=== PATIENT | male | born 1965 | race Caucasian/White ===

== ENCOUNTER 2019-05-17 17:32 | Emergency (ER) | payer BC, OTHER ==
[2019-05-17 17:37] VITALS: BP 145/87; PULSE 52; RESP 18; TEMP 97.4
[2019-05-17] MEDS ORDERED: PROPARACAINE 0.5% OPHTH DROPS 15 ML BTL RIGHT EYE STA (17:39)
[2019-05-17] MEDS ORDERED: TOBRAMYCIN 0.3% OPHTH DROPS 5 ML BTL RIGHT EYE STA (18:10)
--- NOTE | 2019-05-17 18:12 | ED ---
General Adult HPI - General Chief complaint: Eye Problems Stated complaint: FB in eye Time Seen by Provider: 05/17/19 17:38 Source: patient Mode of arrival: ambulatory Limitations: no limitations - History of Present Illness Initial comments: 53-year-old male patient presents to the emergency department today for evaluation of foreign body to the right eye. Patient states he is working with aluminum when a shaving flew into his right eye. Patient states he did go to urgent care over the symptom here for further evaluation after they were unable to remove the foreign body. Patient believes he had his tetanus vaccine her last physical one year ago. He denies any drainage from the eye. Denies any blurred or double vision. Denies headache. Denies any other injuries. - Related Data Home Medications Medication Instructions Recorded Confirmed Omeprazole [PriLOSEC] 20 mg PO AC-BRKFST 01/30/15 01/30/15 Previous Rx's Medication Instructions Recorded Diazepam [Valium] 5 mg PO BID PRN #15 tab 01/30/15 Allergies Allergy/AdvReac Type Severity Reaction Status Date / Time No Known Allergies Allergy Verified 05/17/19 17:37 Review of Systems ROS Statement: Those systems with pertinent positive or pertinent negative responses have been documented in the HPI. ROS Other: All systems not noted in ROS Statement are negative. Past Medical History Past Medical History: GERD/Reflux History of Any Multi-Drug Resistant Organisms: None Reported Past Surgical History: Orthopedic Surgery Past Psychological History: No Psychological Hx Reported Smoking Status: Never smoker Past Alcohol Use History: Occasional Past Drug Use History: Marijuana General Exam Limitations: no limitations General appearance: alert, in no apparent distress, other (This is a well- developed, well-nourished adult male patient in no acute distress. Vital signs upon presentation are temperature 97.4F, pulse 52, respirations 18, blood pressure 145/87, pulse ox 96% on room air.) Eye exam: Present: PERRL, EOMI, other (There is metallic foreign body noted to the cornea over the pupil around 1:00. No rust ring evident. No drainage from the eye. No evidence for globe rupture.). Absent: normal appearance, scleral icterus, conjunctival injection, periorbital swelling Course Vital Signs 05/17/19 17:34 Temperature 97.4 F L Pulse Rate 52 L Respiratory 18 Rate Blood Pressure 145/87 O2 Sat by Pulse 96 Oximetry Procedures - Procedures Initial comment: Right eye was anesthetized with proparacaine drops. Foreign body located and removed utilizing the Burns brush. Patient tolerated the procedure well with no complications. Medical Decision Making - Medical Decision Making 53-year-old male patient presented to the emergency department today for evaluation of foreign body to the right eye. Physical examination did reveal a metallic foreign body noted to the right cornea at around 1:00 over the pupil. This was removed using the Burns brush. Patient tolerated the procedure well. There was successful removal of the foreign body. He'll be discharged with tobramycin ophthalmic drops. He is instructed to follow-up with civil engineering specialist for recheck in 1-2 days. He is instructed to follow-up with his primary care physician for recheck in 1-2 days. Return parameters discussed in detail. He verbalizes understanding and agrees with this plan. Disposition Clinical Impression: Foreign body of right eye Disposition: HOME SELF-CARE Condition: Good Instructions (If sedation given, give patient instructions): Tobramycin (Into the eye), Eye Foreign Body (ED) Additional Instructions: Use eye drops, one drop four times daily while awake. Follow up with civil engineering specialist for further evaluation if symptoms persist beyond one to 2 days. Return to the emergency department immediately for any new, worsening, or concerning symptoms. Is patient prescribed a controlled substance at d/c from ED?: No Referrals: Phill Mercer MD [Primary Care Provider] - 1-2 days Lorna Marvin MD [STAFF PHYSICIAN] - 1-2 days Time of Disposition: 18:12
== END 2019-05-17 18:23 | disposition home or self-care (01) ==
LOC: EC 17:32
DX: T15.91XA Foreign body on external eye, part unspecified, right eye, initial encounter (principal); K21.9 Gastro-esophageal reflux disease without esophagitis; Z79.899 Other long term (current) drug therapy
CPT/HCPCS: 65205; 99283

== ENCOUNTER 2019-11-29 11:42 | Inpatient (IN) | payer OTHER ==
--- NOTE | 2019-11-29 10:49 | CT ---
EXAMINATION TYPE: CT abdomen pelvis wo/w con DATE OF EXAM: 11/29/2019 COMPARISON: NONE HISTORY: 54-year-old male Right sided abdominal pain TECHNIQUE: Contiguous axial scanning of the abdomen and pelvis before and after administration of 100 ml Isovue 300 IV contrast. Delayed images through the kidneys and coronal/sagittal reconstructions performed. CT DLP: 1550.6 mGycm Automated exposure control for dose reduction was used. FINDINGS: LUNG BASES: No significant abnormality is appreciated. LIVER/GB: Small amount of focal fat along the anterior falciform ligament. Portal venous system is pa tent. No biliary ductal dilatation. PANCREAS: No significant abnormality is seen. SPLEEN: No significant abnormality is seen. ADRENALS: No significant abnormality is seen. KIDNEYS: No significant abnormality is seen. BOWEL: Moderate sized hernia. Focal inflammatory changes obscuring the appendix. There is phlegmonou s change here measuring 5.3 x 5.0 cm with thickened irregular soft tissue and admixed fluid density. More focal fluid along the right flank measures 3.7 x 3.1 cm. No free air. There is some contiguous t hickening extending to the base of the appendix and inferior cecum. Mild diverticular change along th e sigmoid colon. LYMPH NODES: No mesenteric or retroperitoneal lymphadenopathy. Tiny fatty umbilical hernia. PELVIS: No abnormal fluid collection in the pelvis. Bladder is urine distended. Borderline-sized 8 mm external iliac chain lymph nodes likely reactive. BONES: Some ossification at the ischial tuberosities suggest chronic hamstring tendinopathy. IMPRESSION: 1. FINDINGS SUGGEST ACUTE TO SUBACUTE APPENDICITIS WITH ASSOCIATED PHLEGMON AND CONTAINED PERFORATION MEASURING 5.3 X 5.0 CM. EARLY ABSCESS FORMATION HERE MEASURES 3.7 X 3.1 CM. NO FREE AIR OR FREE FLUI D. 2. MODERATE-SIZED HIATAL HERNIA.
[2019-11-29] MEDS ORDERED: SODIUM CHLORIDE 0.9% 1,000 ML IV ONE (11:47)
[2019-11-29] MEDS ORDERED: PIPERACILLIN-TAZOBACTAM 3.375 GM in SODIUM CHLORIDE 0.9% 100 ML IVPB STA (11:47)
[2019-11-29] MEDS ORDERED: NALOXONE 0.4 MG/ML 1 ML VIAL IV PRN (11:55)
[2019-11-29] MEDS ORDERED: MORPHINE SULFATE 4 MG/ML SYRINGE IV PRN (11:55)
--- NOTE | 2019-11-29 11:55 | ED ---
Abdominal Pain HPI - General Chief Complaint: Abdominal Pain Stated Complaint: Appendicitis Time Seen by Provider: 11/29/19 11:46 Source: patient, RN notes reviewed Mode of arrival: ambulatory Limitations: no limitations - History of Present Illness Initial Comments: 54-year-old male present emergency department with chief complaint of right- sided abdominal pain. Patient's pain is been on for several weeks but states it has worsened to the point he cannot tolerate. Patient does admit that he thought the pain was started couple weeks ago. Patient's had nausea without any episodes of vomiting, diarrhea or known fever. Patient's had no prior abdominal surgeries. Patient saw PCP and had an outpatient CT performed today. - Related Data Home Medications Medication Instructions Recorded Confirmed Omeprazole [PriLOSEC] 40 mg PO AC-BRKFST 11/29/19 11/29/19 Allergies Allergy/AdvReac Type Severity Reaction Status Date / Time No Known Allergies Allergy Verified 11/29/19 12:08 Review of Systems ROS Statement: Those systems with pertinent positive or pertinent negative responses have been documented in the HPI. ROS Other: All systems not noted in ROS Statement are negative. Past Medical History Past Medical History: GERD/Reflux History of Any Multi-Drug Resistant Organisms: None Reported Past Surgical History: Orthopedic Surgery Past Psychological History: No Psychological Hx Reported Smoking Status: Never smoker Past Alcohol Use History: Occasional Past Drug Use History: Marijuana General Exam Limitations: no limitations General appearance: alert, in no apparent distress Head exam: Present: atraumatic, normocephalic, normal inspection Respiratory exam: Present: normal lung sounds bilaterally. Absent: respiratory distress, wheezes, rales, rhonchi, stridor Cardiovascular Exam: Present: regular rate, normal rhythm, normal heart sounds. Absent: systolic murmur, diastolic murmur, rubs, gallop, clicks GI/Abdominal exam: Present: soft, tenderness (Moderately tender right lower quadrant), normal bowel sounds. Absent: distended, guarding, rebound, rigid Course Vital Signs 11/29/19 11:43 Temperature 98.4 F Pulse Rate 86 Respiratory 18 Rate Blood Pressure 154/94 O2 Sat by Pulse 97 Oximetry Medical Decision Making - Medical Decision Making Patient CT shows evidence of subacute appendicitis with abscess formation angelina downey's case discussed with Dr. Duong who recommended patient be admitted to Dr. angel with consult to her patient's will be evaluated for possible drainage or surgery Disposition Clinical Impression: Acute appendicitis with appendiceal abscess Disposition: ADMITTED IP TO THIS HOSP Condition: Serious Referrals: Phill Mercer MD [Primary Care Provider] - 1-2 days
[2019-11-29] MEDS ORDERED: SODIUM CHLORIDE 0.9% 1,000 ML IV SCH (12:00)
[2019-11-29 12:15] LABS: Basophils % (A) 0 %; Eosinophils # (A) 0.3 k/uL (0-0.7); Eosinophils % (A) 2 %; HCT 41.4 % (39.0-53.0); HGB 13.9 gm/dL (13.0-17.5); Lymphocytes # (A) 2.8 k/uL (1.0-4.8); Lymphocytes % (A) 18 %; MCH 28.3 pg (25.0-35.0); MCHC 33.5 g/dL (31.0-37.0); MCV 84.6 fL (80.0-100.0); Mean Platelet Volume 7.5; Monocytes # (A) 0.6 k/uL (0-1.0); Monocytes % (A) 4 %; Neutrophils # (A) 11.2 k/uL (1.3-7.7); Neutrophils % (A) 73 %; Platelet Count 558 k/uL (150-450); RBC 4.89 m/uL (4.30-5.90); RDW 12.6 % (11.5-15.5); WBC 15.4 k/uL (3.8-10.6)
[2019-11-29 12:29] LABS: ALT 58 U/L (4-49); AST 40 U/L (17-59); African American GFR (CKD) >90 (>60 ml/min/1.73 sqM); Alkaline Phosphatase 190 U/L (38-126); Anion Gap 11 mmol/L; Blood Urea Nitrogen 15 mg/dL (9-20); Calcium 9.8 mg/dL (8.4-10.2); Carbon Dioxide 25 mmol/L (22-30); Chloride 99 mmol/L (98-107); Glucose 104 mg/dL (74-99); Non-African American GFR(CKD) >90 (>60 ml/min/1.73 sqM); Potassium 4.6 mmol/L (3.5-5.1); Sodium 135 mmol/L (137-145); Total Bilirubin 0.6 mg/dL (0.2-1.3); Total Protein 7.3 g/dL (6.3-8.2)
[2019-11-29] MEDS: ONDANSETRON 4 MG/2 ML VIAL IVP PRN (12:52)
--- NOTE | 2019-11-29 14:10 | P.GSCN ---
<Tamie Moe A - Last Filed: 11/29/19 14:09> History of Present Illness Consult date: 11/29/19 Reason for Consult: Appendicitis Requesting physician: Fabio Emery History of present illness: CHIEF COMPLAINT: Appendicitis HISTORY OF PRESENT ILLNESS: 54-year-old male who presented to the emergency room with a chief complaint of abdominal pain. Patient states he has been experiencing right-sided abdominal pain since July. He reports his pain has become worse in the last 2-3 weeks. He reports nausea but denies vomiting. Denies diarrhea or constipation. He reports having a colonoscopy performed within the last couple weeks at an outside facility and was told he was "good for 10 years". PAST MEDICAL HISTORY: See list. PAST SURGICAL HISTORY: See list. MEDICATIONS: See list. ALLERGIES: See list. SOCIAL HISTORY: Reports marijuana use. Occasional alcohol use REVIEW OF SYSTEMS: CONSTITUTIONAL: Denies fever or chills. HEENT: Denies blurred vision, vision changes, or eye pain. Denies hemoptysis ENDOCRINE: Denies heat or cold intolerance. CARDIOVASCULAR: Denies chest pain or pressure. RESPIRATORY: No shortness of breath. GASTROINTESTINAL: See HPI for pertinent findings NEURO: Denies history of seizures. PSYCH: No depression or suicidal ideation HEMATOLOGIC: Denies bleeding disorders. LYMPHATIC: The patient denies any lumps and bumps around the neck. GENITOURINARY: Denies any blood in urine or increased urinary frequency. MUSCULOSKELETAL: Denies myalgias. Denies joint swelling. Denies decreased range of motion beyond patients baseline. SKIN: Denies pruitis. Denies rash. PHYSICAL EXAM: VITAL SIGNS: Reviewed GENERAL: Well-developed in no acute distress. HEENT: No sclera icterus. Extraocular movements grossly intact. Moist buccal mucosa. Head is atraumatic, normocephalic. Hears conversational speech. No nasal drainage. NECK: Supple without lymphadenopathy. CHEST: Non-labored respirations and equal bilateral excursions. CARDIOVASCULAR: Regular rate with regular rhythm. Palpable 2+ radial pulses. ABDOMEN: Soft. Nondistended. Right-sided abdominal tenderness with palpation. MUSCULOSKELETAL: No clubbing or cyanosis. NEUROLOGIC: No focal or lateralizing signs. Cranial nerves II through XII ellie sly intact. PSYCH: Appropriate affect. Alert and oriented to person, place and time. SKIN: Well perfused. Good skin turgor. LABORATORY DATA: WBC 15.4. Hemoglobin 13.9. Platelet count 558. Sodium 135. Potassium 4.6. BUN 15. Creatinine 0.76. Bilirubin 0.6. AST 40. ALT 58. IMAGING: CT abdomen and pelvis: Findings suggestive of acute to subacute appendicitis with associated phlegmon and contained perforation measuring 5.3 x 5.0 cm. Early abscess formation measuring 3.7 x 3.1 cm. Moderate sized hiatal hernia. ASSESSMENT: 1. Abdominal pain 2. Subacute ruptured appendicitis with phlegmon PLAN: -NPO except ice chips and popsicles -Continue IV antibiotics. Monitor WBC -Consult Dr. Garzon for evaluation as patient will require outpatient IV antibiotics -No inpatient surgical intervention recommended -Patient will go undergo interval appendectomy in 4-6 weeks Nurse practitioner note has been reviewed by physician. Signing provider agrees with the documented findings, assessment, and plan of care. Past Medical History Past Medical History: GERD/Reflux History of Any Multi-Drug Resistant Organisms: None Reported Past Surgical History: Orthopedic Surgery Additional Past Surgical History / Comment(s): rotator cuff repaired Past Psychological History: No Psychological Hx Reported Smoking Status: Never smoker Past Alcohol Use History: Occasional Past Drug Use History: Marijuana - Past Family History Father Family Medical History: Diabetes Mellitus Medications and Allergies Home Medications Medication Instructions Recorded Confirmed Type Omeprazole [PriLOSEC] 40 mg PO AC-BRKFST 11/29/19 11/29/19 History Allergies Allergy/AdvReac Type Severity Reaction Status Date / Time No Known Allergies Allergy Verified 11/29/19 12:08 Surgical - Exam Vital Signs Temp Pulse Resp BP Pulse Ox 98.4 F 86 18 154/94 97 11/29/19 11:43 11/29/19 11:43 11/29/19 11:43 11/29/19 11:43 11/29/19 11:43 Results - Labs 11/29/19 11:55 11/29/19 11:55 Abnormal Lab Results - Last 24 Hours (Table) 11/29/19 11/29/19 Range/Units 11:55 11:55 WBC 15.4 H (3.8-10.6) k/uL Plt Count 558 H (150-450) k/uL Neutrophils # 11.2 H (1.3-7.7) k/uL Sodium 135 L (137-145) mmol/L Glucose 104 H (74-99) mg/dL ALT 58 H (4-49) U/L Alkaline Phosphatase 190 H (38-126) U/L Diabetes panel 11/29/19 Range/Units 11:55 Sodium 135 L (137-145) mmol/L Potassium 4.6 (3.5-5.1) mmol/L Chloride 99 (98-107) mmol/L Carbon Dioxide 25 (22-30) mmol/L BUN 15 (9-20) mg/dL Creatinine 0.76 (0.66-1.25) mg/dL Glucose 104 H (74-99) mg/dL Calcium 9.8 (8.4-10.2) mg/dL AST 40 (17-59) U/L ALT 58 H (4-49) U/L Alkaline Phosphatase 190 H (38-126) U/L Total Protein 7.3 (6.3-8.2) g/dL Albumin 4.0 (3.5-5.0) g/dL Calcium panel 11/29/19 Range/Units 11:55 Calcium 9.8 (8.4-10.2) mg/dL Albumin 4.0 (3.5-5.0) g/dL Pituitary panel 11/29/19 Range/Units 11:55 Sodium 135 L (137-145) mmol/L Potassium 4.6 (3.5-5.1) mmol/L Chloride 99 (98-107) mmol/L Carbon Dioxide 25 (22-30) mmol/L BUN 15 (9-20) mg/dL Creatinine 0.76 (0.66-1.25) mg/dL Glucose 104 H (74-99) mg/dL Calcium 9.8 (8.4-10.2) mg/dL Adrenal panel 11/29/19 Range/Units 11:55 Sodium 135 L (137-145) mmol/L Potassium 4.6 (3.5-5.1) mmol/L Chloride 99 (98-107) mmol/L Carbon Dioxide 25 (22-30) mmol/L BUN 15 (9-20) mg/dL Creatinine 0.76 (0.66-1.25) mg/dL Glucose 104 H (74-99) mg/dL Calcium 9.8 (8.4-10.2) mg/dL Total Bilirubin 0.6 (0.2-1.3) mg/dL AST 40 (17-59) U/L ALT 58 H (4-49) U/L Alkaline Phosphatase 190 H (38-126) U/L Total Protein 7.3 (6.3-8.2) g/dL Albumin 4.0 (3.5-5.0) g/dL <Sarah Shepard Harpreet - Last Filed: 12/01/19 09:31> History of Present Illness History of present illness: Patient seen and evaluated now presenting with almost 2 week history of ruptured appendicitis. He actually gives a more protracted history of several months of right lower quadrant abdominal pain. He confirms having a recent colonoscopy as outpatient with the last 2 months which was unremarkable. In light of these findings including independent review of the CT of the abdomen pelvis demonstrated a ruptured appendicitis and phlegmon of the right lower quadrant, recommend IV antibiotics and treatment of phlegmon. Care plan described with IV antibiotics. Patient may be stable for discharge when WBC count is normal, pain is tolerable and tolerating diet. Surgical - Exam Vital Signs Temp Pulse Resp BP Pulse Ox 98.4 F 86 18 154/94 97 11/29/19 11:43 11/29/19 11:43 11/29/19 11:43 11/29/19 11:43 11/29/19 11:43 Results - Labs 12/01/19 06:23 11/29/19 11:55 Abnormal Lab Results - Last 24 Hours (Table) 12/01/19 Range/Units 06:23 WBC 12.6 H (3.8-10.6) k/uL Hgb 12.6 L (13.0-17.5) gm/dL Plt Count 528 H (150-450) k/uL Neutrophils # 8.7 H (1.3-7.7) k/uL Microbiology - Last 24 Hours (Table) 11/29/19 11:55 Blood Culture - Preliminary Blood No Growth after 24 hours Assessment and Plan (1) Acute phlegmonous appendicitis Current Visit: Yes Status: Acute Code(s): K35.890 - OTHER ACUTE APPENDICITIS WITHOUT PERFORATION OR GANGRENE SNOMED Code(s): 471015705 (2) Ruptured appendicitis Current Visit: Yes Status: Acute Code(s): K35.32 - ACUTE APPENDICITIS WITH PERF AND LOC PERITONITIS, W/O ABSCS SNOMED Code(s): 33798788 (3) Acute appendicitis with appendiceal abscess Current Visit: Yes Status: Acute Code(s): K35.33 - ACUTE APPENDICITIS WITH PERF AND LOC PERITONITIS, WITH ABSCS SNOMED Code(s): 146638219
[2019-11-29] MEDS: ACETAMINOPHEN TAB 325 MG TAB PO PRN (20:10)
[2019-11-29] MEDS: PIPERACILLIN-TAZOBACTAM 3.375 GM in SODIUM CHLORIDE 0.9% 100 ML IVPB SCH (20:11)
--- NOTE | 2019-11-29 21:55 | P.HPIM ---
History of Present Illness H&P Date: 11/29/19 Chief Complaint: Abdominal pain History of presenting complaint: This is a pleasant 54-year-old patient of Dr. Elijah Mercer. Relevant good health except for GERD. Patient's had abdominal pain on and off for some time. About 2 weeks ago started having more abdominal pain. Did have an ultrasound. Seen by his family doctor. They were thinking this could be an acute issue. 2 weeks ago patient's pain became more significant. Did go back and see his family doctor again. In the meantime for a week ago started having fever and chills. Also been having diarrhea on and off for a few days. Computed tomography scan was ordered that showed a phlegmon in the right lower quadrant suspect be from a ruptured appendix. General surgery per ER to admit the patient to medicine. Appetite is okay Review of systems: GEN.: Fever or chills tired EYES: None HEENT: None NECK: None RESPIRATORY: None CARDIOVASCULAR: None GASTROINTESTINAL: As above GENITOURINARY: None MUSCULOSKELETAL: None LYMPHATICS: None HEMATOLOGICAL: None PSYCHIATRY: None NEUROLOGICAL: None Past medical history to include: GERD Social history: Alcohol socially, , works as a union as a tolliver, smokes 2 marijuana joints a day Physical examination: VITAL SIGNS: 98.4, 86, 18, 154/94, 97% on room air GENERAL: BMI 28.1, laying in bed slightly anxious. EYES: Pupils equal. Conjunctiva normal. HEENT: External appearance of nose and ears normal, oral cavity grossly normal. NECK: JVD not raised; masses not palpable. HEART: First and second heart sounds are normal; no edema. LUNGS: Respiratory rate normal; clear to auscultation. ABDOMEN: Soft, some right lower quadrant tenderness, no guarding or rigidity liver spleen not palpable, no masses palpable. PSYCH: Alert and oriented x3; mood and affect normal. NEUROLOGICAL: Cranial nerves grossly intact; no facial asymmetry, power and sensation grossly intact. LYMPHATICS: No lymph nodes palpable in the axilla and neck INVESTIGATIONS, reviewed in the clinical context: White count 15.4 hemoglobin 13.9 platelets is 558 calcium 4.6 creatinine 0.76 Computed tomography scan of the abdomen and pelvis-moderate sided hernia ph legmon measuring 5 x 5.3 cm with thickened irregular soft tissue administers fluid density. More fluid focally along the right flank. Some sigmoid diverticulosis Assessment: -Ruptured appendix with the associated phlegmon in the right lower quadrant -GERD -Reactive thrombocytosis Plan: General surgery saw the patient. Currently nothing by mouth. ID was consulted. Patient started on IV Zosyn. Increase IV fluids to 1 25 mL an hour. Lovenox for DVT prophylaxis. We'll also add Flagyl. Care was discussed with the patient question were answered. Past Medical History Past Medical History: GERD/Reflux History of Any Multi-Drug Resistant Organisms: None Reported Past Surgical History: Orthopedic Surgery Additional Past Surgical History / Comment(s): rotator cuff repaired Past Psychological History: No Psychological Hx Reported Smoking Status: Never smoker Past Alcohol Use History: Occasional Past Drug Use History: Marijuana - Past Family History Father Family Medical History: Diabetes Mellitus Medications and Allergies Home Medications Medication Instructions Recorded Confirmed Type Omeprazole [PriLOSEC] 40 mg PO AC-BRKFST 11/29/19 11/29/19 History Allergies Allergy/AdvReac Type Severity Reaction Status Date / Time No Known Allergies Allergy Verified 11/29/19 12:08 Physical Exam Vitals: Vital Signs Temp Pulse Pulse Resp BP BP Pulse Ox 11/29/19 19:15 98.9 F 70 19 124/78 99 11/29/19 14:21 96.8 F L 88 18 143/72 98 11/29/19 12:35 98.7 F 74 16 135/77 97 11/29/19 11:43 98.4 F 86 18 154/94 97 Intake and Output 11/29/19 11/29/19 11/29/19 06:59 14:59 22:59 Other: # Voids 1 Weight 83.915 kg Results CBC & Chem 7: 11/29/19 11:55 11/29/19 11:55 Labs: Abnormal Lab Results - Last 24 Hours (Table) 11/29/19 11/29/19 Range/Units 11:55 11:55 WBC 15.4 H (3.8-10.6) k/uL Plt Count 558 H (150-450) k/uL Neutrophils # 11.2 H (1.3-7.7) k/uL Sodium 135 L (137-145) mmol/L Glucose 104 H (74-99) mg/dL ALT 58 H (4-49) U/L Alkaline Phosphatase 190 H (38-126) U/L Thrombosis Risk Factor Assmnt - Choose All That Apply Any of the Below Risk Factors Present?: Yes Each Factor Represents 1 point: Age 41-60 years, Obesity (BMI >25) Other Risk Factors: No Other congenital or acquired thrombophilia - If yes, enter type in comment: No Thrombosis Risk Factor Assessment Total Risk Factor Score: 2 Thrombosis Risk Factor Assessment Level: Low Risk
[2019-11-29] MEDS: LACTATED RINGERS 1,000 ML IV SCH (22:14)
--- NOTE | 2019-11-29 23:52 | P.CONS ---
History of Present Illness - Reason for Consult Consult date: 11/29/19 ruptured appendicitis with phelgem Requesting physician: Vijay Aceves - Chief Complaint abd pain worsening x 2-3 weeks - History of Present Illness Patient is a 54-year-old male presenting to the ER at [facility] today with chief complaints of worsening abdominal pain over the last 2 to 3 weeks patient pain has been mostly in the right lower abdominal area that has been coming off and on however for the last 2 has been mostly patient describes the pain to be dull aching to sharp with intensity good PSIS 8-10 out of 10 with no radiation patient has been nauseated but no vomiting and denies having any diarrhea patient did have some chills but denies high-grade fever patient apparently was evaluated by his primary care physician he did have an ultrasound and subsequently was advised a CT of abdominal pelvis which was completed today in the outpatient setting this morning CT did shows acute to subacute appendicitis with associated volume and contained perforation 5.34 centimeters patient was subsequently sent to the ER for the patient has been divided by the ER physician patient noticed to be afebrile white count of 15.4 he has been admitted to hospital he was started on Zosyn infectious disease was consulted for further recommendation regarding antibiotic therapy Review of Systems positive point has been mentioned in HPI rest of the systems are negative. Past Medical History Past Medical History: GERD/Reflux History of Any Multi-Drug Resistant Organisms: None Reported Past Surgical History: Orthopedic Surgery Additional Past Surgical History / Comment(s): rotator cuff repaired Past Psychological History: No Psychological Hx Reported Smoking Status: Never smoker Past Alcohol Use History: Occasional Past Drug Use History: Marijuana - Past Family History Father Family Medical History: Diabetes Mellitus Medications and Allergies Home Medications Medication Instructions Recorded Confirmed Type Omeprazole [PriLOSEC] 40 mg PO AC-BRKFST 11/29/19 11/29/19 History Allergies Allergy/AdvReac Type Severity Reaction Status Date / Time No Known Allergies Allergy Verified 11/29/19 12:08 Physical Exam Vitals: Vital Signs Temp Pulse Pulse Resp BP BP Pulse Ox 11/29/19 19:15 98.9 F 70 19 124/78 99 11/29/19 14:21 96.8 F L 88 18 143/72 98 11/29/19 12:35 98.7 F 74 16 135/77 97 11/29/19 11:43 98.4 F 86 18 154/94 97 Intake and Output 11/29/19 11/29/19 11/30/19 14:59 22:59 06:59 Other: # Voids 1 Weight 83.915 kg GENERAL DESCRIPTION: Middle-aged male lying in bed, no distress. No tachypnea or accessory muscle of respiration use. HEENT: Shows Pallor , no scleral icterus. Oral mucous membrane is dry. NECK: Trachea central, no thyromegaly. LUNGS: Unlabored breathing. Clear to auscultation anteriorly. No wheeze or crackle. HEART: S1, S2, regular rate and rhythm. ABDOMEN: Soft, mild right-sided tenderness , guarding or rigidity EXTREMITIES: No edema of feet. SKIN: No rash, no masses palpable. NEUROLOGICAL: The patient is awake, alert, oriented x3, mood and affect normal. Results CBC & Chem 7: 11/29/19 11:55 11/29/19 11:55 Labs: Abnormal Lab Results - Last 24 Hours (Table) 11/29/19 11/29/19 Range/Units 11:55 11:55 WBC 15.4 H (3.8-10.6) k/uL Plt Count 558 H (150-450) k/uL Neutrophils # 11.2 H (1.3-7.7) k/uL Sodium 135 L (137-145) mmol/L Glucose 104 H (74-99) mg/dL ALT 58 H (4-49) U/L Alkaline Phosphatase 190 H (38-126) U/L Assessment and Plan Assessment: patient with subacute appendicitis with perforation and contained abscess/phelgem formation in this patient who has not been exposed to antibiotic in the recent past could be sensitive gram-negative such as E. coli with the plan for possible antibiotics and interval appendectomy in 4 to 6-week as per discussion with surgery (1) Acute appendicitis with appendiceal abscess Current Visit: Yes Status: Acute Code(s): K35.33 - ACUTE APPENDICITIS WITH PERF AND LOC PERITONITIS, WITH ABSCS SNOMED Code(s): 952474128 Plan: 1-Zosyn 3.37 g every 8 hour 2-we will arrange for midline and outpatient antibiotic for at least 2 weeks 3-IV fluids We will follow on clinical condition and cultures to further adjust medication if needed Thank you for this consultation we will follow the patient along with you Time with Patient: Greater than 30
[2019-11-30] MEDS: metroNIDAZOLE-NS PMX 500 MG in SALINE 1 100ML.BAG IVPB SCH ×4 (01:11→17:40)
[2019-11-30] MEDS: PIPERACILLIN-TAZOBACTAM 3.375 GM in SODIUM CHLORIDE 0.9% 100 ML IVPB SCH (04:41)
[2019-11-30] MEDS: LACTATED RINGERS 1,000 ML IV SCH ×4 (06:17→23:40)
[2019-11-30 06:19] LABS: Basophils # (A) 0.1 k/uL (0-0.2); Basophils % (A) 0 %; Eosinophils # (A) 0.3 k/uL (0-0.7); Eosinophils % (A) 2 %; HGB 12.9 gm/dL (13.0-17.5); Lymphocytes # (A) 2.2 k/uL (1.0-4.8); Lymphocytes % (A) 16 %; MCH 27.9 pg (25.0-35.0); MCHC 32.2 g/dL (31.0-37.0); MCV 86.4 fL (80.0-100.0); Mean Platelet Volume 7.5; Monocytes # (A) 0.7 k/uL (0-1.0); Monocytes % (A) 6 %; Neutrophils # (A) 9.6 k/uL (1.3-7.7); Neutrophils % (A) 73 %; Platelet Count 432 k/uL (150-450); RBC 4.63 m/uL (4.30-5.90); RDW 12.7 % (11.5-15.5); WBC 13.2 k/uL (3.8-10.6)
--- NOTE | 2019-11-30 10:50 | P.PN ---
<Tamie Moe - Last Filed: 11/30/19 10:48> Subjective Progress Note Date: 11/30/19 CHIEF COMPLAINT: Appendicitis HISTORY OF PRESENT ILLNESS: Patient examined this morning at the bedside. Patient states he is feeling better today. Currently rating pain 3/10. Tolerating ice chips and popsicles. WBC 13.2. He is afebrile. PHYSICAL EXAM: VITAL SIGNS: Reviewed GENERAL: Well-developed in no acute distress. HEENT: No sclera icterus. Extraocular movements grossly intact. Moist buccal mucosa. Head is atraumatic, normocephalic. Hears conversational speech. No nasal drainage. NECK: Supple without lymphadenopathy. CHEST: Non-labored respirations and equal bilateral excursions. CARDIOVASCULAR: Regular rate with regular rhythm. Palpable 2+ radial pulses. ABDOMEN: Soft. Nondistended. Minimal tenderness upon palpation of right lower quadrant MUSCULOSKELETAL: No clubbing or cyanosis. NEUROLOGIC: No focal or lateralizing signs. Cranial nerves II through XII grossly intact. PSYCH: Appropriate affect. Alert and oriented to person, place and time. SKIN: Well perfused. Good skin turgor. ASSESSMENT: 1. Abdominal pain 2. Subacute ruptured appendicitis with phlegmon PLAN: -Begin clear liquid diet -Continue IV antibiotics. Monitor WBC -Obtain midline IV catheter per infectious disease recommendations -No inpatient surgical intervention recommended -Patient will go undergo interval appendectomy in 4-6 weeks -Possible discharge home within the next 48 hours once pain is improved and WBC within normal limits Nurse practitioner note has been reviewed by physician. Signing provider agrees with the documented findings, assessment, and plan of care. Objective - Vital Signs Vital signs: Vital Signs Temp 98.2 F 11/30/19 07:00 Pulse 65 11/30/19 07:00 Resp 17 11/30/19 08:00 BP 116/70 11/30/19 07:00 Pulse Ox 96 11/30/19 07:00 Intake & Output 11/29/19 11/30/19 11/30/19 18:59 06:59 18:59 Weight 83.915 kg Other: # Voids 1 0 - Labs CBC & Chem 7: 11/30/19 05:48 11/29/19 11:55 Labs: Abnormal Lab Results - Last 24 Hours (Table) 11/29/19 11/29/19 11/30/19 Range/Units 11:55 11:55 05:48 WBC 15.4 H 13.2 H (3.8-10.6) k/uL Hgb 12.9 L (13.0-17.5) gm/dL Plt Count 558 H (150-450) k/uL Neutrophils # 11.2 H 9.6 H (1.3-7.7) k/uL Sodium 135 L (137-145) mmol/L Glucose 104 H (74-99) mg/dL ALT 58 H (4-49) U/L Alkaline Phosphatase 190 H (38-126) U/L <Sarah Shepard N - Last Filed: 12/01/19 09:32> Subjective Patient clinically reports feeling better regarding right lower quadrant abdominal pain. No peritonitis. Continue IV antibiotics. Await white blood cell count to improve to less than 10,000 including abdominal pain improves. Objective - Vital Signs Vital signs: Vital Signs Temp 97.9 F 12/01/19 06:55 Pulse 77 12/01/19 06:55 Resp 16 12/01/19 07:30 BP 147/83 12/01/19 06:55 Pulse Ox 91 L 12/01/19 06:55 Intake & Output 11/30/19 12/01/19 12/01/19 18:59 06:59 18:59 Intake Total 480 Balance 480 Intake: Oral 480 Other: # Voids 1 - Labs CBC & Chem 7: 12/01/19 06:23 11/29/19 11:55 Labs: Abnormal Lab Results - Last 24 Hours (Table) 12/01/19 Range/Units 06:23 WBC 12.6 H (3.8-10.6) k/uL Hgb 12.6 L (13.0-17.5) gm/dL Plt Count 528 H (150-450) k/uL Neutrophils # 8.7 H (1.3-7.7) k/uL Microbiology - Last 24 Hours (Table) 11/29/19 11:55 Blood Culture - Preliminary Blood No Growth after 24 hours Assessment and Plan (1) Acute phlegmonous appendicitis Current Visit: Yes Status: Acute Code(s): K35.890 - OTHER ACUTE APPENDICITIS WITHOUT PERFORATION OR GANGRENE SNOMED Code(s): 151724767 (2) Ruptured appendicitis Current Visit: Yes Status: Acute Code(s): K35.32 - ACUTE APPENDICITIS WITH PERF AND LOC PERITONITIS, W/O ABSCS SNOMED Code(s): 78734009 (3) Acute appendicitis with appendiceal abscess Current Visit: Yes Status: Acute Code(s): K35.33 - ACUTE APPENDICITIS WITH PERF AND LOC PERITONITIS, WITH ABSCS SNOMED Code(s): 946271237
[2019-11-30] MEDS: AMPICILLIN-SULBACTAM 3 GM in SODIUM CHLORIDE 0.9% 100 ML IVPB SCH ×3 (11:49→23:37)
--- NOTE | 2019-11-30 13:42 | PN ---
PROGRESS NOTE DATE OF SERVICE: 11/30/2019 REASON FOR FOLLOWUP: abscess and appendicitis. INTERVAL HISTORY: The patient is currently afebrile. The patient's abdominal pain is currently controlled. . Denies having any chest pain, shortness of breath or cough. No nausea or vomiting. No diarrhea. PHYSICAL EXAMINATION: Blood pressure 116/70 with pulse of 65, temperature 98.2. He is 96% on room air. General description is a middle aged male lying in bed in no distress. RESPIRATORY SYSTEM: Unlabored breathing. Clear to auscultation anteriorly. HEART: S1, S2. Regular rate and rhythm. ABDOMEN: Soft. Mild tenderness. rigidity. EXTREMITIES: No edema of feet. LABS: Hemoglobin is 12.9 and white count 13.2. DIAGNOSTIC IMPRESSION AND PLAN: Patient with acute appendicitis with abscess. The patient currently on Zosyn will switch him over to Unasyn . Will try to arrange for the Midline or PICC line and outpatient IV for 2 weeks. Once arranged, he will be able to go home from ID standpoint. MMODL / IJN: [id number] /
--- NOTE | 2019-11-30 20:07 | P.PN ---
Progress Note - Text Progress Note Date: 11/30/19 Chief Complaint: Abdominal pain History of presenting complaint: This is a pleasant 54-year-old patient of Dr. Elijah Mercer. Relevant good health except for GERD. Patient's had abdominal pain on and off for some time. About 2 weeks ago started having more abdominal pain. Did have an ultrasound. Seen by his family doctor. They were thinking this could be an acute issue. 2 weeks ago patient's pain became more significant. Did go back and see his family doctor again. In the meantime for a week ago started having fever and chills. Also been having diarrhea on and off for a few days. Computed tomography scan was ordered that showed a phlegmon in the right lower quadrant suspect be from a ruptured appendix. General surgery per ER to admit the patient to medicine. Appetite is okay Admitted with-ruptured appendix with the right lower quadrant phlegmon. Started on IV Zosyn and Flagyl. No plan for surgical intervention on this admission. Today-some pain is present. Did have a couple of bowel movements. On clear liquids. On IV antibiotics. No fever no chills. Review of systems: Was done for constitutional, cardiovascular, GI, pulmonary. relevant finding as above Active Medications Acetaminophen (Tylenol Tab) 650 mg PO Q6HR PRN PRN Reason: Fever and/ or mild Pain Last Admin: 11/29/19 20:10 Dose: 650 mg Documented by: Metronidazole 500 mg/ IV (Solution) 100 mls @ 100 mls/hr IVPB Q6HR [facility] Last Admin: 11/30/19 17:40 Dose: 100 mls/hr Documented by: Lactated Ringer's (Lactated Ringers) 1,000 mls @ 125 mls/hr IV .Q8H [facility] Last Admin: 11/30/19 17:00 Dose: 125 mls/hr Documented by: Ampicillin Sodium/Sulbactam (Sodium 3 gm/ Sodium Chloride) 100 mls @ 200 mls/hr IVPB Q6HR [facility] Last Admin: 11/30/19 17:00 Dose: 200 mls/hr Documented by: Morphine Sulfate (Morphine Sulfate (Inj)) 4 mg IV Q4HR PRN PRN Reason: Severe Pain Last Admin: 11/29/19 17:50 Dose: 4 mg Documented by: Naloxone HCl (Narcan) 0.2 mg IV Q2M PRN PRN Reason: Opioid Reversal Ondansetron HCl (Zofran) 4 mg IVP Q8HR PRN PRN Reason: Nausea And Vomiting Last Admin: 11/29/19 12:52 Dose: 4 mg Documented by: Physical examination: VITAL SIGNS: 98.9, 75, 16, 127/79, 96% on room air GENERAL: Laying in bed, slightly anxious. EYES: Pupils equal. Conjunctiva normal. HEENT: External appearance of nose and ears normal, oral cavity grossly normal. NECK: JVD not raised; masses not palpable. HEART: First and second heart sounds are normal; no edema. LUNGS: Respiratory rate normal; clear to auscultation. ABDOMEN: Soft, some right lower quadrant tenderness, no guarding or rigidity liver spleen not palpable, no masses palpable. PSYCH: Alert and oriented x3; mood and affect normal. INVESTIGATIONS, reviewed in the clinical context: White count 13.2 hemoglobin 12.9 platelets 432 Previous testing White count 15.4 hemoglobin 13.9 platelets is 558 calcium 4.6 creatinine 0.76 Computed tomography scan of the abdomen and pelvis-moderate sided hernia phlegmon measuring 5 x 5.3 cm with thickened irregular soft tissue administers fluid density. More fluid focally along the right flank. Some sigmoid diverticulosis Assessment: -Ruptured appendix with the associated phlegmon in the right lower quadrant -Leukocytosis from above -GERD -Reactive thrombocytosis Plan: Antibiotics which to IV Unasyn, on IV Flagyl and IV fluids. On liquids. Patient will need a PICC line. Discussed with patient. Encouraged to ambulate.
[2019-11-30] MEDS: ACETAMINOPHEN TAB 325 MG TAB PO PRN (20:32)
[2019-12-01] MEDS: metroNIDAZOLE-NS PMX 500 MG in SALINE 1 100ML.BAG IVPB SCH ×4 (01:03→17:15)
[2019-12-01] MEDS: AMPICILLIN-SULBACTAM 3 GM in SODIUM CHLORIDE 0.9% 100 ML IVPB SCH ×4 (05:42→23:47)
[2019-12-01] MEDS: LACTATED RINGERS 1,000 ML IV SCH ×3 (05:44→20:00)
[2019-12-01 07:03] LABS: Basophils # (A) 0.1 k/uL (0-0.2); Basophils % (A) 0 %; Eosinophils # (A) 0.3 k/uL (0-0.7); Eosinophils % (A) 2 %; HCT 39.6 % (39.0-53.0); HGB 12.6 gm/dL (13.0-17.5); Lymphocytes # (A) 2.7 k/uL (1.0-4.8); Lymphocytes % (A) 22 %; MCH 27.7 pg (25.0-35.0); MCHC 31.9 g/dL (31.0-37.0); MCV 86.8 fL (80.0-100.0); Mean Platelet Volume 7.2; Monocytes # (A) 0.6 k/uL (0-1.0); Monocytes % (A) 5 %; Neutrophils # (A) 8.7 k/uL (1.3-7.7); Neutrophils % (A) 69 %; Platelet Count 528 k/uL (150-450); RBC 4.56 m/uL (4.30-5.90); RDW 12.9 % (11.5-15.5); WBC 12.6 k/uL (3.8-10.6)
--- NOTE | 2019-12-01 09:39 | P.PN ---
<Tamie Moe - Last Filed: 12/01/19 09:34> Subjective Progress Note Date: 12/01/19 CHIEF COMPLAINT: Appendicitis HISTORY OF PRESENT ILLNESS: Patient examined this morning at the bedside. Patient reports improvement in pain. He reports a mild constant discomfort to right lower quadrant. Toleraing clear liquid diet. WBC 12.6. He is afebrile. PHYSICAL EXAM: VITAL SIGNS: Reviewed GENERAL: Well-developed in no acute distress. HEENT: No sclera icterus. Extraocular movements grossly intact. Moist buccal mucosa. Head is atraumatic, normocephalic. Hears conversational speech. No nasal drainage. NECK: Supple without lymphadenopathy. CHEST: Non-labored respirations and equal bilateral excursions. CARDIOVASCULAR: Regular rate with regular rhythm. Palpable 2+ radial pulses. ABDOMEN: Soft. Nondistended. Minimal tenderness upon palpation of right lower quadrant MUSCULOSKELETAL: No clubbing or cyanosis. NEUROLOGIC: No focal or lateralizing signs. Cranial nerves II through XII grossly intact. PSYCH: Appropriate affect. Alert and oriented to person, place and time. SKIN: Well perfused. Good skin turgor. ASSESSMENT: 1. Abdominal pain 2. Subacute ruptured appendicitis with phlegmon PLAN: -Advance diet to full liquids -Continue IV antibiotics. Monitor WBC -No inpatient surgical intervention recommended -Patient will go undergo interval appendectomy in 4-6 weeks -Discharge home when WBC is within normal limits Nurse practitioner note has been reviewed by physician. Signing provider agrees with the documented findings, assessment, and plan of care. Objective - Vital Signs Vital signs: Vital Signs Temp 97.9 F 12/01/19 06:55 Pulse 77 12/01/19 06:55 Resp 16 12/01/19 07:30 BP 147/83 12/01/19 06:55 Pulse Ox 91 L 12/01/19 06:55 Intake & Output 11/30/19 12/01/19 12/01/19 18:59 06:59 18:59 Intake Total 480 Balance 480 Intake: Oral 480 Other: # Voids 1 - Labs CBC & Chem 7: 12/01/19 06:23 11/29/19 11:55 Labs: Abnormal Lab Results - Last 24 Hours (Table) 12/01/19 Range/Units 06:23 WBC 12.6 H (3.8-10.6) k/uL Hgb 12.6 L (13.0-17.5) gm/dL Plt Count 528 H (150-450) k/uL Neutrophils # 8.7 H (1.3-7.7) k/uL Microbiology - Last 24 Hours (Table) 11/29/19 11:55 Blood Culture - Preliminary Blood No Growth after 24 hours <Sarah Shepard N - Last Filed: 12/02/19 09:50> Subjective Patient is clinically doing well. We'll await improvement of white blood cell count. Additionally, also pending final recommendations from infectious disease regarding antibiotics and potential discharge. Objective - Vital Signs Vital signs: Vital Signs Temp 98.5 F 12/02/19 07:00 Pulse 72 12/02/19 07:00 Resp 17 12/02/19 07:00 BP 131/84 12/02/19 07:00 Pulse Ox 97 12/02/19 07:00 Intake & Output 12/01/19 12/02/19 12/02/19 18:59 06:59 18:59 Intake Total 1500 Balance 1500 Intake: Intake, IV Titration 1500 Amount Ampicillin-Sulbactam 3 gm 750 In Sodium Chloride 0.9% 100 ml @ 200 mls/hr IVPB Q6HR [facility] Rx#:[id number] Lactated Ringers 1,000 ml 750 @ 125 mls/hr IV .Q8H [facility] Rx#:[id number] Other: # Voids 2 2 - Labs CBC & Chem 7: 12/02/19 06:48 12/02/19 06:48 Labs: Abnormal Lab Results - Last 24 Hours (Table) 12/02/19 12/02/19 Range/Units 06:48 06:48 WBC 11.9 H (3.8-10.6) k/uL Hgb 12.6 L (13.0-17.5) gm/dL Hct 38.3 L (39.0-53.0) % Plt Count 588 H (150-450) k/uL Neutrophils # 8.3 H (1.3-7.7) k/uL BUN 8 L (9-20) mg/dL C-Reactive Protein 76.7 H (<10.0) mg/L Microbiology - Last 24 Hours (Table) 11/29/19 11:55 Blood Culture - Preliminary Blood No Growth after 48 hours Assessment and Plan (1) Acute phlegmonous appendicitis Current Visit: Yes Status: Acute Code(s): K35.890 - OTHER ACUTE APPENDICITIS WITHOUT PERFORATION OR GANGRENE SNOMED Code(s): 804658377 (2) Ruptured appendicitis Current Visit: Yes Status: Acute Code(s): K35.32 - ACUTE APPENDICITIS WITH PERF AND LOC PERITONITIS, W/O ABSCS SNOMED Code(s): 87809769 (3) Acute appendicitis with appendiceal abscess Current Visit: Yes Status: Acute Code(s): K35.33 - ACUTE APPENDICITIS WITH PERF AND LOC PERITONITIS, WITH ABSCS SNOMED Code(s): 209632409
--- NOTE | 2019-12-01 15:00 | P.PN ---
Progress Note - Text Progress Note Date: 12/01/19 Chief Complaint: Abdominal pain History of presenting complaint: This is a pleasant 54-year-old patient of Dr. Elijah Mercer. Relevant good health except for GERD. Patient's had abdominal pain on and off for some time. About 2 weeks ago started having more abdominal pain. Did have an ultrasound. Seen by his family doctor. They were thinking this could be an acute issue. 2 weeks ago patient's pain became more significant. Did go back and see his family doctor again. In the meantime for a week ago started having fever and chills. Also been having diarrhea on and off for a few days. Computed tomography scan was ordered that showed a phlegmon in the right lower quadrant suspect be from a ruptured appendix. General surgery per ER to admit the patient to medicine. Appetite is okay Admitted with-ruptured appendix with the right lower quadrant phlegmon. Started on IV Zosyn and Flagyl. No plan for surgical intervention on this admission. Today-Pain much better. No nausea vomiting. Some loose stool.. Review of systems: Was done for constitutional, cardiovascular, GI, pulmonary. relevant finding as above Active Medications Acetaminophen (Tylenol Tab) 650 mg PO Q6HR PRN PRN Reason: Fever and/ or mild Pain Last Admin: 11/30/19 20:32 Dose: 650 mg Documented by: Metronidazole 500 mg/ IV (Solution) 100 mls @ 100 mls/hr IVPB Q6HR COUNTS INCLUDE 234 BEDS AT THE [facility] Last Admin: 12/01/19 11:52 Dose: 100 mls/hr Documented by: Lactated Ringer's (Lactated Ringers) 1,000 mls @ 125 mls/hr IV .Q8H COUNTS INCLUDE 234 BEDS AT THE [facility] Last Admin: 12/01/19 05:44 Dose: Not Given Documented by: Ampicillin Sodium/Sulbactam (Sodium 3 gm/ Sodium Chloride) 100 mls @ 200 mls/hr IVPB Q6HR COUNTS INCLUDE 234 BEDS AT THE [facility] Last Admin: 12/01/19 11:15 Dose: 200 mls/hr Documented by: Morphine Sulfate (Morphine Sulfate (Inj)) 4 mg IV Q4HR PRN PRN Reason: Severe Pain Last Admin: 11/29/19 17:50 Dose: 4 mg Documented by: Naloxone HCl (Narcan) 0.2 mg IV Q2M PRN PRN Reason: Opioid Reversal Ondansetron HCl (Zofran) 4 mg IVP Q8HR PRN PRN Reason: Nausea And Vomiting Last Admin: 11/29/19 12:52 Dose: 4 mg Documented by: Physical examination: VITAL SIGNS: 97.9, 77, 16, 147/83, 91% on room air GENERAL: Laying in bed, awake EYES: Pupils equal. Conjunctiva normal. HEENT: External appearance of nose and ears normal, oral cavity grossly normal. NECK: JVD not raised; masses not palpable. HEART: First and second heart sounds are normal; no edema. LUNGS: Respiratory rate normal; clear to auscultation. ABDOMEN: Soft, minimal right lower quadrant tenderness, no guarding or rigidity liver spleen not palpable, no masses palpable. PSYCH: Alert and oriented x3; mood and affect normal. INVESTIGATIONS, reviewed in the clinical context: White count 12.6 hemoglobin 12.6 platelets 528 Previous testing White count 15.4 hemoglobin 13.9 platelets is 558 calcium 4.6 creatinine 0.76 Computed tomography scan of the abdomen and pelvis-moderate sided hernia phlegmon measuring 5 x 5.3 cm with thickened irregular soft tissue administers fluid density. More fluid focally along the right flank. Some sigmoid diverticulosis Assessment: -Ruptured appendix with the associated phlegmon in the right lower quadrant -Leukocytosis from above -GERD -Reactive thrombocytosis Plan: IV Unasyn, on IV Flagyl and IV fluids. On liquids. Midline ordered. Discussed with patient. Full liquid diet.
--- NOTE | 2019-12-01 17:20 | PN ---
PROGRESS NOTE DATE OF SERVICE: 12/01/2019 REASON FOR FOLLOWUP: Ruptured appendicitis and periumbilical abscess. INTERVAL HISTORY: The patient is currently afebrile. The patient's abdominal pain is currently down to about 2/10 compared to 8/10 when he presented. The patient denies having any chest pain. No nausea. No vomiting. Did have slight diarrhea. PHYSICAL EXAMINATION: Blood pressure 150/84 with a pulse of 70, temperature 97.9. He is 99% on room air. General description is a middle-aged male lying in bed in no distress. RESPIRATORY SYSTEM: Unlabored breathing. Clear to auscultation anteriorly. HEART: S1, S2. Regular rate and rhythm. ABDOMEN: Soft. No tenderness. EXTREMITIES: No edema of feet. LABS: White count is down to 12,000. Blood cultures were negative. DIAGNOSTIC IMPRESSION AND PLAN: Patient with abdominal abscess with ruptured appendicitis. Patient currently on Unasyn. He will get a midline. Continue with Unasyn 3 grams q.8 hours in the outpatient setting for two weeks and close outpatient followup. Once antibiotic is arranged, he will be able to go home from ID standpoint. MMODL / IJN: [id number] /
[2019-12-01] MEDS: ONDANSETRON 4 MG/2 ML VIAL IVP PRN (20:02)
[2019-12-02] MEDS: metroNIDAZOLE-NS PMX 500 MG in SALINE 1 100ML.BAG IVPB SCH ×2 (00:31→07:13)
[2019-12-02] MEDS: AMPICILLIN-SULBACTAM 3 GM in SODIUM CHLORIDE 0.9% 100 ML IVPB SCH ×2 (05:32→12:02)
[2019-12-02] MEDS: LACTATED RINGERS 1,000 ML IV SCH (05:33)
[2019-12-02 07:31] VITALS: BP 131/84; PULSE 72; RESP 17; TEMP 98.5
[2019-12-02 07:55] LABS: Basophils % (A) 0 %; Eosinophils # (A) 0.4 k/uL (0-0.7); Eosinophils % (A) 3 %; HCT 38.3 % (39.0-53.0); HGB 12.6 gm/dL (13.0-17.5); Lymphocytes # (A) 2.4 k/uL (1.0-4.8); Lymphocytes % (A) 20 %; MCH 28.3 pg (25.0-35.0); MCHC 32.9 g/dL (31.0-37.0); MCV 86.1 fL (80.0-100.0); Mean Platelet Volume 7.2; Monocytes # (A) 0.6 k/uL (0-1.0); Monocytes % (A) 5 %; Neutrophils # (A) 8.3 k/uL (1.3-7.7); Neutrophils % (A) 70 %; Platelet Count 588 k/uL (150-450); RBC 4.45 m/uL (4.30-5.90); RDW 12.6 % (11.5-15.5); WBC 11.9 k/uL (3.8-10.6)
[2019-12-02 08:07] LABS: African American GFR (CKD) >90 (>60 ml/min/1.73 sqM); Anion Gap 7 mmol/L; Blood Urea Nitrogen 8 mg/dL (9-20); C Reactive Protein 76.7 mg/L (<10.0); Calcium 9.1 mg/dL (8.4-10.2); Carbon Dioxide 28 mmol/L (22-30); Chloride 102 mmol/L (98-107); Glucose 99 mg/dL (74-99); Non-African American GFR(CKD) >90 (>60 ml/min/1.73 sqM); Potassium 4.8 mmol/L (3.5-5.1); Sodium 137 mmol/L (137-145)
--- NOTE | 2019-12-02 11:35 | P.PN ---
Subjective Progress Note Date: 12/02/19 CHIEF COMPLAINT: Appendicitis HISTORY OF PRESENT ILLNESS: Patient examined this morning at the bedside. Patient reports minimal discomfort. Tolerating diet. WBC 11.9 PHYSICAL EXAM: VITAL SIGNS: Reviewed GENERAL: Well-developed in no acute distress. HEENT: No sclera icterus. Extraocular movements grossly intact. Moist buccal mucosa. Head is atraumatic, normocephalic. Hears conversational speech. No nasal drainage. NECK: Supple without lymphadenopathy. CHEST: Non-labored respirations and equal bilateral excursions. CARDIOVASCULAR: Regular rate with regular rhythm. Palpable 2+ radial pulses. ABDOMEN: Soft. Nondistended. Nontender. MUSCULOSKELETAL: No clubbing or cyanosis. NEUROLOGIC: No focal or lateralizing signs. Cranial nerves II through XII grossly intact. PSYCH: Appropriate affect. Alert and oriented to person, place and time. SKIN: Well perfused. Good skin turgor. ASSESSMENT: 1. Abdominal pain 2. Subacute ruptured appendicitis with phlegmon PLAN: -Continue full liquid diet -Continue IV antibiotics. Monitor WBC -No inpatient surgical intervention recommended -Patient will go undergo interval appendectomy in 4-6 weeks -Stable for discharge home today from a surgical standpoint when cleared by infectious disease -Patient to follow up with Dr. Shepard December 21, 2019 Nurse practitioner note has been reviewed by physician. Signing provider agrees with the documented findings, assessment, and plan of care. Objective - Vital Signs Vital signs: Vital Signs Temp 98.5 F 12/02/19 07:00 Pulse 72 12/02/19 07:00 Resp 17 12/02/19 07:00 BP 131/84 12/02/19 07:00 Pulse Ox 97 12/02/19 07:00 Intake & Output 12/01/19 12/02/19 12/02/19 18:59 06:59 18:59 Intake Total 1500 Balance 1500 Intake: Intake, IV Titration 1500 Amount Ampicillin-Sulbactam 3 gm 750 In Sodium Chloride 0.9% 100 ml @ 200 mls/hr IVPB Q6HR [facility] Rx#:[id number] Lactated Ringers 1,000 ml 750 @ 125 mls/hr IV .Q8H [facility] Rx#:[id number] Other: # Voids 2 2 - Labs CBC & Chem 7: 12/02/19 06:48 12/02/19 06:48 Labs: Abnormal Lab Results - Last 24 Hours (Table) 12/02/19 12/02/19 Range/Units 06:48 06:48 WBC 11.9 H (3.8-10.6) k/uL Hgb 12.6 L (13.0-17.5) gm/dL Hct 38.3 L (39.0-53.0) % Plt Count 588 H (150-450) k/uL Neutrophils # 8.3 H (1.3-7.7) k/uL BUN 8 L (9-20) mg/dL C-Reactive Protein 76.7 H (<10.0) mg/L Microbiology - Last 24 Hours (Table) 11/29/19 11:55 Blood Culture - Preliminary Blood No Growth after 48 hours
--- NOTE | 2019-12-02 13:58 | PN ---
PROGRESS NOTE DATE OF SERVICE: 12/02/2019 REASON FOR FOLLOWUP: Appendicitis with periappendicular abscess. INTERVAL HISTORY: The patient is currently afebrile. Patient has been breathing comfortably. Patient's abdominal pain has improved. No chest pain, shortness of breath, no cough. No nausea, no vomiting, or any worsening diarrhea. PHYSICAL EXAMINATION: Blood pressure 131/84 with a pulse of 72, temperature 98.5. He is 97% on room air. General description is a middle-aged male lying in bed, in no distress. RESPIRATORY SYSTEM: Unlabored breathing, clear to auscultation anteriorly. HEART: S1, S2. Regular rate and rhythm. ABDOMEN: Soft, no tenderness. LABS: White count of 11.9, creatinine 0.8. DIAGNOSTIC IMPRESSION AND PLAN: Patient with ruptured appendicitis with periappendicular abscess, slowly clinically responding to Unasyn which will be switched to 3 g q.8 hours in the outpatient setting for 2 weeks. Repeating a CAT scan at that point to make sure abscess small before discontinuation of antibiotic. This has been discussed in detail with the admitting team. Continue supportive care. MMODL / IJN: [id number] /
--- NOTE | 2019-12-02 18:25 | P.DS ---
Providers Date of admission: 11/29/19 12:07 Expected date of discharge: 12/02/19 Attending physician: Gibson Zee Consults: 11/29/19 12:04 Consult Physician Stat Consulting Provider: Sarah Shepard Consult Reason/Comments: Appendicitis with abscess Do you want consulting provider notified?: Already Contacted 11/29/19 13:57 Consult Physician Routine Consulting Provider: Alexandra Garzon Consult Reason/Comments: iv antibiotic recommendations Do you want consulting provider notified?: Yes Primary care physician: Phill Mercer [facility] Course: Chief Complaint: Abdominal pain History of presenting complaint: This is a pleasant 54-year-old patient of Dr. Elijah Mercer. Relevant good health except for GERD. Patient's had abdominal pain on and off for some time. About 2 weeks ago started having more abdominal pain. Did have an ultrasound. Seen by his family doctor. They were thinking this could be an acute issue. 2 weeks ago patient's pain became more significant. Did go back and see his family doctor again. In the meantime for a week ago started having fever and chills. Also been having diarrhea on and off for a few days. Computed tomography scan was ordered that showed a phlegmon in the right lower quadrant suspect be from a ruptured appendix. General surgery per ER to admit the patient to medicine. Appetite is okay Admitted with-ruptured appendix with the right lower quadrant phlegmon. Started on IV Zosyn and Flagyl. No plan for surgical intervention on this admission. Today-Pain greatly resolved. Tolerating a diet. Had a bowel movement. Up and about. No fever. Discussed with Dr. Thompson from [place].-Okay to DC. Discussed with the patient. Home antibiotics being arranged. Discussion and discharge planning more than 35 minutes Consultation: Dr. Adali Duong from general surgery Dr. Matt Garzon from [place] Physical examination: VITAL SIGNS: 98.5, 72, 17, 131/84, 97% on room air GENERAL: Laying in bed, comfortable EYES: Pupils equal. Conjunctiva normal. HEENT: External appearance of nose and ears normal, oral cavity grossly normal. NECK: JVD not raised; masses not palpable. HEART: First and second heart sounds are normal; no edema. LUNGS: Respiratory rate normal; clear to auscultation. ABDOMEN: Soft, no tenderness, no guarding or rigidity liver spleen not palpable, no masses palpable. PSYCH: Alert and oriented x3; mood and affect normal. INVESTIGATIONS, reviewed in the clinical context: White count 9.9 and hemoglobin 12.6 potassium 4.8 creatinine 0.86 Previous testing White count 15.4 hemoglobin 13.9 platelets is 558 calcium 4.6 creatinine 0.76 Computed tomography scan of the abdomen and pelvis-moderate sided hernia phlegmon measuring 5 x 5.3 cm with thickened irregular soft tissue administers fluid density. More fluid focally along the right flank. Some sigmoid diverticulosis Assessment: -Ruptured appendix with the associated phlegmon in the right lower quadrant-c linically improved. White count coming down. No fever. No local tenderness. -Leukocytosis from above-improving -GERD -Reactive thrombocytosis Disposition: Home Patient Condition at Discharge: Stable Plan - Discharge Summary Discharge Rx Participant: Yes New Discharge Prescriptions: New Acetaminophen Tab [Tylenol] 650 mg PO Q6HR PRN tab PRN Reason: Fever and/ or mild Pain Ampicillin-Sulbactam [Unasyn] 3 gm IVPB Q8H #42 vial Continue Omeprazole [PriLOSEC] 40 mg PO AC-BRKFST Discharge Medication List Omeprazole [PriLOSEC] 40 mg PO AC-BRKFST 11/29/19 [History] Acetaminophen Tab [Tylenol] 650 mg PO Q6HR PRN tab 12/02/19 [Rx] Ampicillin-Sulbactam [Unasyn] 3 gm IVPB Q8H #42 vial 12/02/19 [Rx] Follow up Appointment(s)/Referral(s): Phill Mercer MD [Primary Care Provider] - 1-2 days (Please call office for your appointment. Thank you.) Sarah Shepard MD [STAFF PHYSICIAN] - 12/21/19 2:40 pm Patient Instructions/Handouts: Appendicitis (GEN) Activity/Diet/Wound Care/Special Instructions: IV antibiotics and home care through [facility]: #[phone]. cbc/bmp weekly soft bland diet Discharge Disposition: HOME SELF-CARE
== END 2019-12-02 14:29 | disposition home or self-care (01) | DRG 373 ==
LOC: EC 11:42 → 4SSUR 12:07
PROVIDERS: ADMIT Hospitalist; ATTEND Hospitalist
PROC: 05HF33Z Insertion of Infusion Device into Left Cephalic Vein, Percutaneous Approach (ICD-10-PCS; principal; 2019-11-30 10:20)
DX: K35.33 Acute appendicitis with perforation, localized peritonitis, and gangrene, with abscess (principal); K21.9 Gastro-esophageal reflux disease without esophagitis; R79.89 Other specified abnormal findings of blood chemistry; E66.9 Obesity, unspecified; K44.9 Diaphragmatic hernia without obstruction or gangrene; Z68.28 Body mass index [BMI] 28.0-28.9, adult; Z79.899 Other long term (current) drug therapy; Z98.890 Other specified postprocedural states; Z87.828 Personal history of other (healed) physical injury and trauma; Z83.3 Family history of diabetes mellitus
CPT/HCPCS: 36410; 36415; 74178; 76937; 80048; 80053; 83605; 85025; 86140; 87040; 99285

== ENCOUNTER 2019-12-07 15:47 | Emergency (ER) | payer OTHER ==
[2019-12-07 15:51] VITALS: BP 134/82; PULSE 58; RESP 18; TEMP 98.4
[2019-12-07] MEDS ORDERED: AMPICILLIN-SULBACTAM 3 GM in SODIUM CHLORIDE 0.9% 100 ML IVPB STA (16:15)
--- NOTE | 2019-12-07 16:16 | ED ---
General Adult HPI - General Chief complaint: Recheck/Abnormal Lab/Rx Stated complaint: Picc line issue Time Seen by Provider: 12/07/19 15:58 Source: patient, RN notes reviewed Mode of arrival: ambulatory Limitations: no limitations - History of Present Illness Initial comments: 54-year-old male presents to the emergency department for a chief complaint of PICC line issues. Patient states he was supposed to have antibiotics through his PICC line today however it would not flush. States it was leaking saline. Patient then called the hospital and was told he could come here through the emergency department and receive clearance to go upstairs and get a PICC line replaced. Patient states he is only here for this and his dose of antibiotics as he will miss his afternoon dose. He denies any worsening abdominal pain or fevers.Patient has no other complaints at this time including shortness of breath, chest pain, abdominal pain, nausea or vomiting, headache, or visual changes. - Related Data Home Medications Medication Instructions Recorded Confirmed Omeprazole [PriLOSEC] 40 mg PO DAILY 11/29/19 12/07/19 Acetaminophen [Tylenol Extra 1,000 mg PO Q8H PRN 12/07/19 12/07/19 Strength] Fluticasone Nasal Kent [Flonase 1 spray EA NOSTRIL BID PRN 12/07/19 12/07/19 Nasal Kent] Multivit-Mins/Iron/Folic/Lycop 1 tab PO DAILY 12/07/19 12/07/19 [Centrum Men's Tablet] Previous Rx's Medication Instructions Recorded Ampicillin-Sulbactam [Unasyn] 3 gm IVPB Q8H #42 vial 12/02/19 Allergies Allergy/AdvReac Type Severity Reaction Status Date / Time No Known Allergies Allergy Verified 12/07/19 16:37 Review of Systems ROS Statement: Those systems with pertinent positive or pertinent negative responses have been documented in the HPI. ROS Other: All systems not noted in ROS Statement are negative. Past Medical History Past Medical History: GERD/Reflux History of Any Multi-Drug Resistant Organisms: None Reported Past Surgical History: Orthopedic Surgery Additional Past Surgical History / Comment(s): rotator cuff repaired Past Psychological History: No Psychological Hx Reported Smoking Status: Never smoker Past Alcohol Use History: Occasional Past Drug Use History: Marijuana - Past Family History Father Family Medical History: Diabetes Mellitus General Exam Limitations: no limitations General appearance: alert, in no apparent distress Head exam: Present: atraumatic, normocephalic, normal inspection Eye exam: Present: normal appearance, PERRL, EOMI. Absent: scleral icterus, conjunctival injection, periorbital swelling ENT exam: Present: normal exam, mucous membranes moist Neck exam: Present: normal inspection. Absent: tenderness, meningismus, lymphadenopathy Respiratory exam: Present: normal lung sounds bilaterally. Absent: respiratory distress, wheezes, rales, rhonchi, stridor Cardiovascular Exam: Present: regular rate, normal rhythm, normal heart sounds. Absent: systolic murmur, diastolic murmur, rubs, gallop, clicks GI/Abdominal exam: Present: soft, normal bowel sounds. Absent: distended, tenderness (Nontender abdomen), guarding, rebound, rigid Back exam: Absent: CVA tenderness (R), CVA tenderness (L) Neurological exam: Present: alert Course Vital Signs 12/07/19 15:48 Temperature 98.4 F Pulse Rate 58 L Respiratory 18 Rate Blood Pressure 134/82 O2 Sat by Pulse 98 Oximetry - Reevaluation(s) Reevaluation #1: 12/07/19 16:49 Admin charge notified Fallon that frank martinez was told him to come in through the emergency department for clearance at which point he would then be discharged from the ER and taken to the OR for outpatient PICC line placement. When patient arrived he had missed his afternoon dose of antibiotics and was requesting them. Therefore an IV was established and patient was given an antibiotic with the expectation that he would then be discharged and go outpatient for PICC line placement. PICC line nurse came to evaluate patient in the ER and performed the procedure at bedside while he was receiving his abx. Medical Decision Making - Medical Decision Making Patient received his antibiotics through peripheral IV. PICC line was established in the right arm after L arm picc line was found to be occluded. He will continue to follow with Dr. Shepard who prescribes his antibiotics. He'll return here for any worsening symptoms. Disposition Clinical Impression: Occluded PICC line Disposition: HOME SELF-CARE Condition: Good Instructions (If sedation given, give patient instructions): How to Flush Your PICC or Midline Catheter (ED) Additional Instructions: Please follow up with Dr. Shepard and primary care. Return to the emergency department for any worsening symptoms. Is patient prescribed a controlled substance at d/c from ED?: No Referrals: Phill Mercer MD [Primary Care Provider] - 1-2 days Time of Disposition: 16:16
== END 2019-12-07 17:25 | disposition home or self-care (01) ==
LOC: EC 15:47
DX: T82.594A Other mechanical complication of infusion catheter, initial encounter (principal); K21.9 Gastro-esophageal reflux disease without esophagitis; Z79.899 Other long term (current) drug therapy
CPT/HCPCS: 36410; 76937; 99284; 36569; 96365; C1751; J0295

== ENCOUNTER → 2019-12-17 | Outpatient (CLI) | payer OTHER ==
[2019-12-17 10:05] LABS: African American GFR (CKD) >90 (>60 ml/min/1.73 sqM); Blood Urea Nitrogen 14 mg/dL (9-20); Non-African American GFR(CKD) >90 (>60 ml/min/1.73 sqM)
--- NOTE | 2019-12-17 13:03 | CT ---
EXAMINATION TYPE: CT abdomen pelvis w con DATE OF EXAM: 12/17/2019 COMPARISON: 11/29/2019 HISTORY: Acute appendicitis with perforation or a follow-up exam. CT DLP: 1027.40 mGycm Automated exposure control for dose reduction was used. TECHNIQUE: Helical acquisition of images was performed from the lung bases through the pelvis. CONTRAST: Performed with Oral Contrast and with IV Contrast, patient injected with 100 ml mL of Isovue 300. FINDINGS: LUNG BASES: Scattered areas of subsegmental atelectasis are seen. LIVER/GB: Hepatic parenchyma is diffusely hypoattenuated in comparison to that of the spleen, most co mmonly seen in hepatic steatosis. This finding limits evaluation for hepatic masses. No gross evidenc e of hepatic mass is seen. No intrahepatic biliary ductal dilatation. No cholelithiasis PANCREAS: No significant abnormality is seen. SPLEEN: No significant abnormality is seen. ADRENALS: No significant abnormality is seen. KIDNEYS: Lobulated Contour the kidneys. No hydronephrosis is seen. Kidneys enhance and excrete symmet rically. FREE AIR: Loculated pneumoperitoneum is redemonstrated lateral to the appendix. There is surrounding phlegmonous changes however the previously seen approximately 3.6 x 3.1 cm abscess has nearly resolv ed with no measurable low density fluid collection remaining. Phlegmonous changes about the inferior serosal surface of the liver. Clustered but nonenlarged adjacent lymph nodes are seen on coronal imag es 49 and 50. ADENOPATHY: No suspicious greater than 1 cm short axis lymph node in the abdomen or pelvis. OSSEOUS STRUCTURES: Ossification of the ischial tuberosities again suggest hamstring tendinopathy. M ild multilevel degenerative change of the spine. BOWEL: Small hiatal hernia and confusing mesenteric fat from the abdomen. Multifocal circumferential thickening of the ascending colon and cecum may be reactive. Colonoscopy could be performed if not r ecently performed given the patient's age after resolution of symptoms. Overall colon is suboptimally evaluated given oral contrast does not extend past the hepatic flexure and there is mild burden feca l stasis. IMPRESSION: NEARLY COMPLETELY RESOLVED PERIAPPENDICEAL ABSCESS FROM RUPTURED WITH A LOCULATED FOCUS OF PNEUMOPERI TONEUM SEEN LATERAL TO THE APPENDIX AND SURROUNDING PHLEGMONOUS CHANGES. MULTIFOCAL THICKENING OF THE ASCENDING COLON COULD BE REACTIVE. COLONOSCOPY COULD BE CONSIDERED IF NOT RECENTLY PERFORMED AFTER R ESOLUTION OF SYMPTOMS.
== END | disposition home or self-care (01) ==
LOC: RADCTMAIN 09:23
PROVIDERS: ATTEND Internal Medicine Infectious Disease
DX: K66.8 Other specified disorders of peritoneum (principal)
CPT/HCPCS: 82565; 84520; 74177; 36415; Q9967

== ENCOUNTER → 2020-01-14 | Outpatient (CLI) | payer OTHER | END | disposition home or self-care (01) | LOC: LABWHC1 13:29 | PROVIDERS: ATTEND Surgery Plastic and Reconstructive Surgery | DX: U07.1 COVID-19 (principal) | CPT/HCPCS: 87635 ==

== ENCOUNTER 2020-01-17 06:26 | Day surgery (SDC) | payer OTHER ==
[2020-01-14 09:44] VITALS: BMI 30.4
--- NOTE | 2020-01-16 20:12 | P.GSHP ---
History of Present Illness H&P Date: 01/17/20 CHIEF COMPLAINT: History of ruptured appendicitis. HISTORY OF PRESENT ILLNESS: Michael Carter is a 54-year-old male who was hospitalized on November 28, almost 2 months ago, for ruptured appendicitis with phlegmon. He reports no further right lower quadrant abdominal pain. He had a PICC line. He is being followed by infectious disease specialist Dr. Garzon. His abdominal pain has resolved. He presents for appendectomy. PAST MEDICAL HISTORY: See list. PAST SURGICAL HISTORY: See list. MEDICATIONS: See list. ALLERGIES: See list. SOCIAL HISTORY: See list. FAMILY HISTORY: See list. REVIEW OF ORGAN SYSTEMS: Additionally reports: CONSTITUTIONAL: No fevers or chills. No recent weight loss. EYES: Denies any trouble with vision. No glasses. HEENT: No difficulties with hearing. No nosebleeds. No difficulty swallowing. RESPIRATORY: Denies pneumonia. Denies any troubles with breathing or dyspnea on exertion. CARDIOVASCULAR: Denies any chest pain, palpitations, or recent heart attacks. GASTROINTESTINAL: Denies fatty food intolerance. Has occasional diarrhea. Has gastroesophageal reflux disease GENITOURINARY: Denies any blood in urine or increased urinary frequency. NEUROLOGICAL: Denies any numbness or tingling along the distal extremities. No seizure disorders or headaches. MUSCULOSKELETAL: Denies any back pain, stiffness or joint arthritis. SKIN: No current skin cancer. No rash. PSYCHIATRIC: Denies current depression or suicidal thoughts. ENDOCRINE: Denies current thyroid disorders. Denies any blood sugar glucose intolerance. HEME/LYMPHATIC: Denies any lumps and bumps around the neck. No recent deep venous thrombosis. ALLERGY/IMMUNOLOGY: No immunoglobulin therapy. No immune deficiencies. BREAST: Denies current breast lumps, pain or nipple discharge. PHYSICAL EXAM: Patient is a 54-year-old male. CONSTITUTIONAL: Well developed and in no acute distress. Vitals reviewed. EYES: Conjuctivae without sclera icterus. Pupils are equally round and reactive to light. Extraocular movements grossly intact. HEAD, EARS, NOSE, THROAT: Moist buccal mucosa. Head is atraumatic, normoc ephalic. Hears conversational speech. No nasal drainage. NECK: Supple. No JV distention. No thyroidomegaly. RESPIRATORY: Non-labored respirations and equal bilateral excursions. No gross wheezes. CARDIOVASCULAR: Regular rate and rhythm. Extremities without moderate edema. Palpable 2+ radial pulses. ABDOMEN: No hepatomegaly. Soft. Non-tender. Nondistended. No peritonitis. LYMPH: No neck lymphadenopathy. No axillary lymphadenopathy. MUSCULOSKELETAL: Nail and fingers with good capillary refill. SKIN: Warm and well perfused with good skin turgor. NEUROLOGIC: Cranial nerves I through XII grossly intact. Sensation upper and extremities intact. No focal or lateralizing signs. PSYCH: Appropriate affect. Alert and oriented to person, place and time. Displays appropriate insight. STUDIES: CT scan of the abdomen/pelvis was independently reviewed and demonstrated inflammatory changes along the appendix. Radiology report also confirms improvement of phlegmon along the right lower quadrant appendix. LABS: WBC count was normal. ASSESSMENT: 1. History of appendicitis. PLAN: 1. Interval appendectomy described 2. He is elevated risk for perioperative complications with his tobacco use disorder. 3. Robotic-assisted laparoscopic appendectomy reviewed. Past Medical History Past Medical History: GERD/Reflux Additional Past Medical History / Comment(s): HX APPENDICITIS WITH ABCESS. History of Any Multi-Drug Resistant Organisms: None Reported Past Surgical History: Orthopedic Surgery Additional Past Surgical History / Comment(s): rotator cuff repaired Past Anesthesia/Blood Transfusion Reactions: No Reported Reaction Past Psychological History: No Psychological Hx Reported Smoking Status: Former smoker Past Alcohol Use History: Occasional Additional Past Alcohol Use History / Comment(s): QUIT SMOKING 11 YRS AGO (2008), SMOKED 1 PPD, STARTED SMOKING AGE 22. Past Drug Use History: Marijuana Additional Drug Use History / Comment(s): CURRENT MARIJUANA USE. - Past Family History Father Family Medical History: Diabetes Mellitus Medications and Allergies Home Medications Medication Instructions Recorded Confirmed Type Omeprazole [PriLOSEC] 40 mg PO DAILY 11/29/19 01/14/20 History Multivit-Mins/Iron/Folic/Lycop 1 tab PO DAILY 12/07/19 01/14/20 History [Centrum Men's Tablet] Amoxicillin 875 mg PO Q12HR 01/14/20 01/14/20 History Allergies Allergy/AdvReac Type Severity Reaction Status Date / Time No Known Allergies Allergy Verified 01/14/20 09:19
[~2020-01-17 06:26] MED LIST: ACETAMINOPHEN TAB 500 MG TAB PO STA; DEXAMETHASONE SOD PHOSPHATE 10 MG/ML 1 ML VIAL IV ONE; GABAPENTIN 300 MG CAP PO STA; HYDROmorphone 0.5 MG/0.5 ML SYRINGE IVP PRN; LACTATED RINGERS 1,000 ML IV SCH; LIDOCAINE 1% (10MG/ML) FOR IV START INTRADERMA PRN; ONDANSETRON 4 MG/2 ML VIAL IVP ONE; TAMSULOSIN 0.4 MG CAP.ER.24H PO STA; metroNIDAZOLE-NS PMX 500 MG in SALINE 1 100ML.BAG IVPB ONE
[2020-01-17] MEDS ORDERED: ONDANSETRON 4 MG/2 ML VIAL IVP ONE (06:47)
[2020-01-17] MEDS ORDERED: DEXAMETHASONE SOD PHOSPHATE 4 MG/ML 1 ML VIAL IV ONE (06:47)
[2020-01-17 06:54] LABS: Basophils # (A) 0.1 k/uL (0-0.2); Basophils % (A) 1 %; Eosinophils # (A) 0.4 k/uL (0-0.7); Eosinophils % (A) 4 %; HCT 46.3 % (39.0-53.0); HGB 14.7 gm/dL (13.0-17.5); Lymphocytes # (A) 3.8 k/uL (1.0-4.8); Lymphocytes % (A) 45 %; MCH 27.6 pg (25.0-35.0); MCHC 31.8 g/dL (31.0-37.0); MCV 86.8 fL (80.0-100.0); Mean Platelet Volume 7.6; Monocytes # (A) 0.5 k/uL (0-1.0); Monocytes % (A) 5 %; Neutrophils # (A) 3.5 k/uL (1.3-7.7); Neutrophils % (A) 42 %; Platelet Count 278 k/uL (150-450); RBC 5.33 m/uL (4.30-5.90); RDW 14.5 % (11.5-15.5); WBC 8.5 k/uL (3.8-10.6)
[2020-01-17 07:19] LABS: African American GFR (CKD) >90 (>60 ml/min/1.73 sqM); Anion Gap 9 mmol/L; Blood Urea Nitrogen 19 mg/dL (9-20); Calcium 9.6 mg/dL (8.4-10.2); Carbon Dioxide 24 mmol/L (22-30); Chloride 106 mmol/L (98-107); Glucose 114 mg/dL (74-99); Non-African American GFR(CKD) >90 (>60 ml/min/1.73 sqM); Potassium 4.3 mmol/L (3.5-5.1); Sodium 139 mmol/L (137-145)
[2020-01-17] MEDS ORDERED: SUCCINYLCHOLINE CHLORIDE 100 MG/5 ML SYR IV ONE ×2 (07:29)
[2020-01-17] MEDS ORDERED: fentaNYL (PF) 50 MCG/ML 2 ML AMP ONE (07:29)
[2020-01-17] MEDS ORDERED: ROCURONIUM BROMIDE 10 MG/ML 5 ML VIAL IV ONE (07:29)
[2020-01-17] MEDS ORDERED: NEOSTIGMINE 1 MG/ML 10 ML VIAL ONE (07:29)
[2020-01-17] MEDS ORDERED: LIDOCAINE 1% INJ 10MG/ML (20 ML MDV) ONE (07:29)
[2020-01-17] MEDS ORDERED: MIDAZOLAM 2 MG/2 ML VIAL ONE (07:29)
[2020-01-17] MEDS ORDERED: ONDANSETRON 4 MG/2 ML VIAL ONE (07:29)
[2020-01-17] MEDS ORDERED: GLYCOPYRROLATE 0.2 MG/ML 2 ML VIAL ONE (07:29)
[2020-01-17] MEDS ORDERED: KETOROLAC 30 MG/ML 1 ML VIAL ONE (07:29)
[2020-01-17] MEDS ORDERED: BUPIVACAIN-EPI 0.25%-1:200,000 30 ML VIAL SQ ONE ×2 (07:50→07:55)
--- NOTE | 2020-01-17 09:03 | P.OP ---
Date of Procedure: 01/17/20 Description of Procedure: SURGEON: SARAH SHEPARD MD Preoperative Diagnosis: 1. History of ruptured appendicitis with phlegmon Postoperative Diagnosis: 1. History of ruptured appendicitis with phlegmon 2. Appendiceal abscess with adhesions, right lower quadrant Procedure(s) Performed: 1. Robotic-assisted daVinci Xi laparoscopic appendectomy with lysis of adhesions over 30 minutes 2. Drainage of appendiceal abscess, 5 mL Anesthesia: GETA, local Surgeon: Sarah Shepard Estimated Blood Loss (ml): 5 Pathology: other (appendix) Condition: stable Disposition: floor Operative Findings: 1. Dense inflammatory inflammation right lower quadrant with contained periappendiceal abscess drained, 5 mL 2. Extensive adhesions right lower quadrant requiring over 30 minutes lysis of adhesions 3. Ruptured appendix at tip, retrocecal 4. Terminal ileum unremarkable 5. No inguinal hernias INDICATIONS: The patient is a 54-year-old male with past history of ruptured appendicitis treated with antibiotics. He presents for interval appendectomy. Benefits and risks, including infection, open surgery, and bleeding for additional surgery was discussed at length. Informed consent was obtained. All questions of the patient and family were answered. DESCRIPTION: The patient was transferred to the operating room and placed in supine position. The patient had previously voided. The abdomen was then prepped and draped in standard sterile fashion as Ioban was placed along the abdomen to minimize any contamination of skin floor. After a timeout protocol was performed, attention was then brought to the left upper quadrant whereby a 0 degree 5 mm laparoscopic trocar entry was performed. The abdominal cavity was entered and insufflated to 12 mmHg pressure, which was tolerated well. Diagnostic laparoscopy demonstrated no injury to bowel, viscera or mesentery. Next a robotic 8-mm trocar was placed along the left lower quadrant, 10-cm lateral to the midline. A 12 mm port was placed along the left upper quadrant and another 8-mm port left lateral abdominal wall. Ports were placed 8 cm apart from each other including 15-20 cm away from the target anatomy of the right pelvis. The patient was then placed in Trendelenburg position, at least 16 down and right side up at least 6. The robotic da Garrett XI system was primed and docked from the left side of the patient. Using atraumatic graspers and vessel sealer, the robotic system was docked and primed as described. Instruments were interchanged by the assistant family teacher including graspers, robotic stapler and vessel sealer. Next, attention was brought to identify the cecum. A systematic view within the abdominal cavity was started with the small bowel which was unremarkable. The base of the cecum was unremarkable. No inguinal hernias were identified. The appendix was retrocecal with additional dissection required. Dense concrete like inflammation was found at the tip of the appendix requiring extensive lysis of adhesions over 30 minutes. An appendiceal abscess 5 mL was drained. The appendix was dissected free from its surrounding tissues. A 45 mm blue robotic staple loads were fired along the base of the appendix. The staple line was hemostatic. Hemostasis was checked prior to undocking the robot. The robot was undocked. I re-scrubbed into the case. The specimen was removed from the abdominal cavity with an Endo Catch bag through the 12 mm trocar at the left upper quadrant. The fascial defect was less than 8 mm. All instruments and pneumoperitoneum were evacuated from the abdominal cavity. Local anesthetic was infiltrated to all wounds for postop analgesia. All incisions were also cleansed with diluted hydrogen peroxide. The incisions were closed with 4-0 Monocryl. Exofin glue was applied to the rest of the skin incisions. The patient had tolerated the procedure well. The patient was extubated successfully. The patient was transferred to the postanesthesia care unit in stable condition. Plan - Discharge Summary Discharge Rx Participant: Yes New Discharge Prescriptions: New Tamsulosin [Flomax] 0.4 mg PO DAILY #5 cap.er.24h Ibuprofen [Motrin] 600 mg PO Q8HR PRN #30 tab PRN Reason: Pain Acetaminophen Tab [Tylenol Tab] 1,000 mg PO Q6HR PRN #30 tablet Continue Omeprazole [PriLOSEC] 40 mg PO DAILY Multivit-Mins/Iron/Folic/Lycop [Centrum Men's Tablet] 1 tab PO DAILY Amoxicillin 875 mg PO Q12HR Discharge Medication List Omeprazole [PriLOSEC] 40 mg PO DAILY 11/29/19 [History] Multivit-Mins/Iron/Folic/Lycop [Centrum Men's Tablet] 1 tab PO DAILY 12/07/19 [History] Amoxicillin 875 mg PO Q12HR 01/14/20 [History] Acetaminophen Tab [Tylenol Tab] 1,000 mg PO Q6HR PRN #30 tablet 01/17/20 [Rx] Ibuprofen [Motrin] 600 mg PO Q8HR PRN #30 tab 01/17/20 [Rx] Tamsulosin [Flomax] 0.4 mg PO DAILY #5 cap.er.24h 01/17/20 [Rx] Follow up Appointment(s)/Referral(s): Sarah Shepard MD [STAFF PHYSICIAN] - 01/25/20 Patient Instructions/Handouts: Laparoscopic Appendectomy (DC) Activity/Diet/Wound Care/Special Instructions: No lifting over 10 pounds in 2 weeks until January 30. January shower. No bath tub soaks for two weeks until January 30. Diet as tolerated. Use Tylenol and ibuprofen or Aleve scheduled for the next 24-48 hours for best pain relief. Use ice along incisions for the today to prevent swelling. Discharge Disposition: HOME SELF-CARE
[2020-01-17 09:18] VITALS: RESP 16; TEMP 97.8
[2020-01-17 10:17] VITALS: BP 129/82; PULSE 52
== END 2020-01-17 11:45 | disposition home or self-care (01) ==
LOC: OR 06:26
PROVIDERS: ATTEND Surgery Plastic and Reconstructive Surgery
DX: K35.33 Acute appendicitis with perforation, localized peritonitis, and gangrene, with abscess (principal); K66.0 Peritoneal adhesions (postprocedural) (postinfection); K21.9 Gastro-esophageal reflux disease without esophagitis; Z98.890 Other specified postprocedural states; Z87.891 Personal history of nicotine dependence; Z79.899 Other long term (current) drug therapy; Z79.2 Long term (current) use of antibiotics; Z97.2 Presence of dental prosthetic device (complete) (partial); Z83.3 Family history of diabetes mellitus
CPT/HCPCS: 44970; 44979; S2900; 80048; 85025; 88304

== ENCOUNTER → 2020-02-09 | Outpatient (CLI) | payer OTHER ==
--- NOTE | 2020-02-09 10:11 | US ---
EXAMINATION TYPE: US gallbladder DATE OF EXAM: 02/09/2020 COMPARISON: CT December 17, 2019 CLINICAL HISTORY: K80.10 Calculus of gallbladder with chronic cholecystits. EXAM MEASUREMENTS: Liver Length: 13.2 cm Gallbladder Wall: 0.1 cm CBD: 0.2 cm Right Kidney: 12.2 x 5.7 x 4.8 cm Pancreas: Obscured by bowel gas Liver: Increased attenuation, probable focal fatty sparing adjacent to gallbladder Gallbladder: wnl Evidence for sonographic Farooq's sign: no CBD: wnl Right Kidney: superior pole obscured by overlying bowel gas Suboptimal evaluation of pancreas and ultrasound images today appear within normal limits on recent C T. Heterogeneous hyperechoic appearance of the liver corresponds to diffuse fatty infiltration on rec ent CT. No surrounding ascites. Right kidney shows no gross hydronephrosis. Gallbladder shows no shad owing mobile gallstones. IMPRESSION: No shadowing mobile gallstones or ultrasound evidence for acute cholecystitis. Marked fat ty infiltration of liver redemonstrated.
== END | disposition home or self-care (01) ==
LOC: RADUSWWP 09:30
PROVIDERS: ATTEND Surgery Plastic and Reconstructive Surgery
DX: K76.0 Fatty (change of) liver, not elsewhere classified (principal); K80.10 Calculus of gallbladder with chronic cholecystitis without obstruction
CPT/HCPCS: 76705

== ENCOUNTER → 2020-06-02 | Outpatient (CLI) | payer OTHER ==
--- NOTE | 2020-06-02 11:53 | CT ---
EXAMINATION TYPE: CT abdomen pelvis wo con DATE OF EXAM: 06/02/2020 COMPARISON: Prior CT 12/17/2019 HISTORY: right flank pain, diarrhea, post appendectomy CT DLP: 561.6 mGycm Automated exposure control for dose reduction was used. TECHNIQUE: Helical acquisition of images from the lung bases through the pelvis. Patient received or al contrast only. FINDINGS: Lack of intravenous contrast could compromise sensitivity. There is a small hiatal hernia p resent. LUNG BASES: No significant abnormality is appreciated. AORTA: No significant abnormality is appreciataed. LIVER/GB: No significant abnormality is appreciated. PANCREAS: No significant abnormality is seen. SPLEEN: No significant abnormality is seen. ADRENALS: No significant abnormality is seen. KIDNEYS: No significant abnormality is seen. REPRODUCTIVE ORGANS: No significant abnormality is seen. URINARY BLADDER: No significant abnormality is seen. BOWEL: There are small and large bowel fold which show a thickened appearance. The appendix is absen t. Terminal ileum does show thickened appearance, the inflammatory changes noted along the right para colic gutter have essentially resolved. FREE AIR: No Free Air is visible. ASCITES: None visible. PELVIC ADENOPATHY: None visualized. RETROPERITONEAL ADENOPATHY: No Retroperitoneal Adenopathy visible. OSSEOUS STRUCTURES: No significant abnormality is seen. IMPRESSION: FINDINGS COULD BE INDICATIVE OF ENTERITIS, DIFFICULT TO EXCLUDE A MUCOSAL LESION WITHIN THE COLON, CO NSIDER BOWEL SURVEILLANCE INDICATED.
== END | disposition home or self-care (01) ==
LOC: RADCTMAIN 08:06
PROVIDERS: ATTEND Family Medicine
DX: R10.9 Unspecified abdominal pain (principal)
CPT/HCPCS: 74176

== ENCOUNTER → 2021-05-02 | Outpatient (CLI) | payer OTHER, BC ==
--- NOTE | 2021-05-02 22:04 | CT ---
EXAMINATION TYPE: CT abdomen pelvis wo con DATE OF EXAM: 05/02/2021 COMPARISON: 06/02/2020 HISTORY: right flank pain CT DLP: 609.8 mGycm Automated exposure control for dose reduction was used. TECHNIQUE: Helical acquisition of images was performed from the lung bases through the pelvis. CONTRAST: Performed without oral and without intravenous contrast. FINDINGS: LUNG BASES: Normal. LIVER: Normal attenuation and size. BILIARY SYSTEM: No intrahepatic or extrahepatic biliary ductal dilatation. PANCREAS: No peripancreatic stranding or fluid collection. SPLEEN: Not enlarged. ADRENALS: Normal. KIDNEYS: No hydronephrosis or urolithiasis. BOWEL: Small to moderate hiatal hernia. No evidence of bowel obstruction or thickening. Colonic dive rticulosis. No acute diverticulitis. Likely status post appendectomy. PERITONEUM: No pneumoperitoneum. No free fluid. LYMPH NODES: No lymphadenopathy. PELVIS: Unremarkable. VASCULATURE: No abdominal aortic aneurysm. MUSCULOSKELETAL: Degenerative changes of the spine. IMPRESSION: 1. No acute findings. No hydronephrosis or urolithiasis. 2. Small to moderate hiatal hernia.
== END | disposition home or self-care (01) ==
LOC: RADCTMAIN 16:16
PROVIDERS: ATTEND Family Medicine
DX: K44.9 Diaphragmatic hernia without obstruction or gangrene (principal)
CPT/HCPCS: 74176